=== PATIENT | female | born 1975 | race Caucasian/White ===

== ENCOUNTER 2016-07-30 05:46 | Day surgery (SDC) | payer MEDICAID ==
[2016-07-30] MEDS ORDERED: Sodium Chloride 0.9% 1,000 ML IV ONE ×2 (06:21→06:23)
--- NOTE | 2016-07-30 06:25 | C.PDOC ---
History Of Present Illness Patient is a 40 year old female who presents to the ER with a complaint of lower abdominal pain and vaginal bleeding since 23:00. Patient reports her LMP was a month ago, is unsure if she could be . Denies any dysuria, fever, or nausea. Chief Complaint (Nursing): Female Genitourinary History Per: Patient History/Exam Limitations: no limitations Onset/Duration Of Symptoms: Hrs (Since 23:00) Current Symptoms Are (Timing): Still Present Associated Symptoms: Other (Vaginal bleeding). denies: Fever, Nausea, Urinary Symptoms Past Medical History Reviewed: Historical Data, Nursing Documentation, Vital Signs Vital Signs: Last Vital Signs Temp 98.2 F 07/30/16 05:55 Pulse 83 07/30/16 05:55 Resp 20 07/30/16 05:55 BP 102/61 07/30/16 05:55 Pulse Ox 99 07/30/16 06:29 - Medical History PMH: Anemia Surgical History: No Surg Hx Family History: States: Unknown Family Hx - Social History Hx Alcohol Use: No Hx Substance Use: No - Immunization History Hx Tetanus Toxoid Vaccination: No Hx Influenza Vaccination: No Hx Pneumococcal Vaccination: No Review Of Systems Constitutional: Negative for: Fever, Chills Gastrointestinal: Positive for: Abdominal Pain (Lower). Negative for: Nausea Genitourinary: Negative for: Dysuria Physical Exam - Physical Exam Appears: Well, Non-toxic, No Acute Distress Skin: Normal Color, Warm, Dry Head: Atraumatic, Normacephalic Oral Mucosa: Moist Chest: Symmetrical Cardiovascular: Rhythm Regular, No Murmur Respiratory: Normal Breath Sounds, No Rales, No Rhonchi, No Wheezing Gastrointestinal/Abdominal: Soft, Tenderness (Mild hypogastric, more at LLQ) Pelvic: Vaginal Bleeding, Other (Blood clot in the vaginal vault. Cervix closed. ) Neurological/Psych: Oriented x3, Normal Speech, Other (No focal deficits.) ED Course And Treatment O2 Sat by Pulse Oximetry: 99 (Room air) Pulse Ox Interpretation: Normal Progress Note: Blood work and pelvic US ordered. IV fluids administered. Disposition - Disposition Disposition Time: 07:00 Condition: STABLE - Clinical Impression Clinical Impression: Abdominal pain, Episode of heavy vaginal bleeding - Scribe Statement The provider has reviewed the documentation as recorded by the Scribe Inocencio Dobbs All medical record entries made by the Scribe were at my direction and personally dictated by me. I have reviewed the chart and agree that the record accurately reflects my personal performance of the history, physical exam, medical decision making, and the department course for this patient. I have also personally directed, reviewed, and agree with the discharge instructions and disposition.
[2016-07-30 06:40] LABS: BASO % 0.6 % (0.0-2.0); EOS # 0.1 K/uL (0.0-0.7); HEMATOCRIT 33.7 % (34.0-47.0); LYMPH # 1.7 K/uL (1.0-4.3); LYMPH % 22.3 % (20.0-40.0); MEAN CELL VOLUME 85.3 fL (81.0-99.0); MEAN CORPUSCULAR HEMOGLOBIN 28.1 pg (27.0-31.0); MEAN PLATELET VOLUME 9.6 fL (7.2-11.7); MONO # 0.5 K/uL (0.0-0.8); MONO % 6.6 % (0.0-10.0); WHITE BLOOD COUNT 7.6 K/uL (4.8-10.8)
[2016-07-30 06:47] LABS: INR 1.1
[2016-07-30 06:59] LABS: CHLORIDE 103 mmol/L (98-107); SODIUM 137 mmol/L (132-148)
[2016-07-30 07:00] LABS: POTASSIUM 3.8 mmol/L (3.6-5.2)
[2016-07-30 07:02] LABS: ALB/GLOB RATIO 1.4 (1.0-2.1); ALKALINE PHOSPHATASE 53 U/L (38-126); AST/SGOT 26 U/L (14-36); BILIRUBIN,TOTAL 0.6 mg/dL (0.2-1.3); BLOOD UREA NITROGEN 11 mg/dL (7-17); CARBON DIOXIDE 19 mmol/L (22-30); GFR AFRICAN-AMERICAN > 60; GLUCOSE,RANDOM 85 mg/dL (65-105); TOTAL PROTEIN 6.9 g/dL (6.3-8.3)
[2016-07-30 07:03] LABS: ALT/SGPT 19 U/L (9-52); CALCIUM 8.4 mg/dl (8.6-10.4)
--- NOTE | 2016-07-30 09:28 | US ---
HISTORY: LLQ pain/ heavy vaginal bleed COMPARISON: None available. TECHNIQUE: Transabdominal and transvaginal FINDINGS: UTERUS: Measures 13.6 x 4.1 x 6.4 cm. Mid right uterine body fibroid, 3.2 x 2.7 x 2.9 cm. ENDOMETRIUM: Measures 20 mm in diameter. No intrauterine gestational sac identified. There are heterogeneous echoes within the endometrial cavity demonstrating blood flow on Doppler interrogation, suggesting retained products of conception. CERVIX: No cervical abnormality identified. RIGHT OVARY: Measures 3.5 x 1.6 x 2.3 cm. No solid mass. Normal flow. Corpus luteum, 1.4 x 1.1 x 1.1 cm. LEFT OVARY: Measures 3.4 x 1.5 x 2.8 cm. No solid mass. Normal flow. FREE FLUID: No significant free fluid noted. OTHER FINDINGS: None. IMPRESSION: No intrauterine gestation identified. Heterogeneous echoes within the endometrial cavity consistent with current vaginal bleeding. However, there is blood flow demonstrated within these endometrial echoes suggesting retained products of conception. Cannot rule out ectopic in the absence of demonstrated intrauterine gestation. Followup with serial beta HCG and transvaginal pelvic ultrasound is advised.
--- NOTE | 2016-07-30 12:11 | CP.PCM.CON ---
History of Present Illness - History of Present Illness History of Present Illness: OBGYN consult Reason -vaginal bleeding, HPI 40 y/o with LMP 06/18/2016 , presents to er with c/o heavy bleeding which started last night and she passed few clots.Patient denies feeling light headed or dizzy.Has cramps last night but none now Review of Systems - Review of Systems All systems: reviewed and no additional remarkable complaints except - Cardiovascular Cardiovascular: absent: Chest Pain, Dyspnea, Dyspnea on Exertion - Respiratory Respiratory: absent: Cough, Dyspnea on Exertion - Gastrointestinal Gastrointestinal: Abdominal Pain. absent: Nausea, Vomiting - Genitourinary Genitourinary: absent: Dysuria - Reproductive: Female Reproductive:Female: Abnormal Vaginal Bleeding Past Patient History - Past Social History Smoking Status: Never Smoked - CARDIAC Hx Cardiac Disorders: No - PULMONARY Hx Respiratory Disorders: No - HEMATOLOGICAL/ONCOLOGICAL Hx Anemia: Yes - GENITOURINARY/GYNECOLOGICAL Hx Sexually Transmitted Disorders: No LMP:: 06/18/2016 : 5 Para: 2 - PSYCHIATRIC Hx Substance Use: No - SURGICAL HISTORY Hx Surgeries: No Hx Dilation and Curettage: Yes - ANESTHESIA Hx Anesthesia: No Meds Allergies/Adverse Reactions: Allergies Allergy/AdvReac Type Severity Reaction Status Date / Time No Known Allergies Allergy Unverified 07/30/16 06:01 - Medications Medications: Current Medications Sodium Chloride (Sodium Chloride 0.9%) 1,000 mls @ 100 mls/hr IV .Q10H ONE Stop: 07/30/16 16:20 Last Admin: 07/30/16 06:34 Dose: 100 mls/hr Sodium Chloride (Sodium Chloride 0.9%) 1,000 mls @ 100 mls/hr IV .Q10H ONE Stop: 07/30/16 16:22 Last Admin: 07/30/16 06:45 Dose: Not Given Physical Exam - Constitutional Appears: No Acute Distress - Respiratory Exam Respiratory Exam: Clear to Auscultation Bilateral, NORMAL BREATHING PATTERN - Cardiovascular Exam Cardiovascular Exam: REGULAR RHYTHM - GI/Abdominal Exam GI & Abdominal Exam: Soft. absent: Rebound - Exam External exam: NORMAL EXTERNAL EXAM Speculum exam: Vaginal Bleeding Additional comments: speculum exam done Small amount of blood with blood clot removed cervix 1 cm dilated - Extremities Exam Extremities exam: Negative for: calf tenderness - Back Exam Back exam: absent: CVA tenderness (L), CVA tenderness (R) - Neurological Exam Neurological exam: Alert, Oriented x3 - Psychiatric Exam Psychiatric exam: Normal Affect, Normal Mood - Skin Skin Exam: Normal Color Results - Vital Signs Recent Vital Signs: Last Vital Signs Temp 98.2 F 07/30/16 05:55 Pulse 83 07/30/16 05:55 Resp 20 07/30/16 05:55 BP 102/61 07/30/16 05:55 Pulse Ox 99 07/30/16 06:30 - Labs Result Diagrams: 07/30/16 06:35 07/30/16 06:35 Labs: Laboratory Results - last 24 hr 07/30/16 07/30/16 07/30/16 06:35 06:35 06:35 WBC 7.6 RBC 3.95 Hgb 11.1 Hct 33.7 L MCV 85.3 MCH 28.1 MCHC 33.0 RDW 14.0 Plt Count 193 MPV 9.6 Neut % (Auto) 68.5 Lymph % (Auto) 22.3 [place] % (Auto) 6.6 Eos % (Auto) 2.0 Baso % (Auto) 0.6 Neut # 5.2 Lymph # 1.7 [place] # 0.5 Eos # 0.1 Baso # 0.0 PT 12.1 INR 1.1 APTT 32 Sodium 137 Potassium 3.8 Chloride 103 Carbon Dioxide 19 L Anion Gap 19 BUN 11 Creatinine 0.5 L Est GFR ( Amer) > 60 Est GFR (Non-Af Amer) > 60 Random Glucose 85 Calcium 8.4 L Total Bilirubin 0.6 AST 26 ALT 19 Alkaline Phosphatase 53 Total Protein 6.9 Albumin 4.0 Globulin 2.9 Albumin/Globulin Ratio 1.4 Beta HCG, Quant 3714.20 Urine HCG, Qual Blood Type Antibody Screen 07/30/16 07/30/16 06:35 07:28 WBC RBC Hgb Hct MCV MCH MCHC RDW Plt Count MPV Neut % (Auto) Lymph % (Auto) [place] % (Auto) Eos % (Auto) Baso % (Auto) Neut # Lymph # [place] # Eos # Baso # PT INR APTT Sodium Potassium Chloride Carbon Dioxide Anion Gap BUN Creatinine Est GFR ( Amer) Est GFR (Non-Af Amer) Random Glucose Calcium Total Bilirubin AST ALT Alkaline Phosphatase Total Protein Albumin Globulin Albumin/Globulin Ratio Beta HCG, Quant Urine HCG, Qual Positive Blood Type O POSITIVE Antibody Screen Negative - Imaging and Cardiology pelvic ultrasound Status: Report reviewed by me Additional comment: Ultrasound with thickened endometrium with echoes with blood flow suggestive of retained products however ectopic cannot be ruled out Assessment & Plan - Assessment and Plan (Free Text) Assessment: 40 y/o with vaginal bleeding , positive test and ultrasound suggestive of retained products Patient with active vaginal bleeding on exam discussed d&e in light of active bleeding and retained products patient contemplating doing the procedure.will inform the r physician if she desires to proceed discussed with patient risks of continued bleeding as well as risks associated with surgery.Patient states that she understands the risks and will inform the er physician once she has made her decision
[2016-07-30] MEDS ORDERED: Sodium Chloride 0.9% 1,000 ML ONE (12:13)
[2016-07-30] MEDS ORDERED: Lactated Ringer's 1,000 ML IV ONE (16:20)
[2016-07-30] MEDS ORDERED: cefOXitin IV 1 gm in Dextrose 1 GM/50 ML BAG IVPB ONE (16:22)
[2016-07-30] MEDS ORDERED: Propofol 10 mg/ml Inj (20 ML) ONE (16:22)
[2016-07-30] MEDS ORDERED: Midazolam 2 MG/2 ML VIAL ONE (16:22)
--- NOTE | 2016-07-30 16:45 | PCM.SURG1 ---
Surgeon's Initial Post Op Note - Surgeon's Notes Surgeon: Dr Perez Photographer'S Assistant: None Type of Anesthesia: General Endo Anesthesia Administered By: Dr Kirill Cotto Pre-Operative Diagnosis: Incomplete Miscarriage with Retained products of conception Operative Findings: 8wk sized anteverted uterus with copious amounts of POC suctioned and curreted. Uterus sounded to 7-8cm. IVFluid - 400mls. Urine Output - 50mls. EBL- 50mls Post-Operative Diagnosis: Same as preop diagnosis Operation Performed: Suction D and C Specimen/Specimens Removed: Products of conception Estimated Blood Loss: EBL {In ML}: 50 Blood Products Given: N/A Post-Op Condition: Good Date of Surgery/Procedure: 07/30/16 Time of Surgery/Procedure: 16:46
[2016-07-30] MEDS ORDERED: HYDROmorphone 0.5 mg/0.5 ml ISec IVP PRN (16:46)
[2016-07-30] MEDS ORDERED: Lactated Ringer's 1,000 ML IV SCH (17:00)
[2016-07-30 17:15] VITALS: O2SAT 100
[2016-07-30 18:10] VITALS: RESP 18
[2016-07-30 19:02] VITALS: BP 113/64; PULSE 62; TEMP 98.2
--- NOTE | 2016-07-30 19:40 | OP ---
PROCEDURE DATE: 07/30/2016 PREOPERATIVE DIAGNOSIS: A 40-year-old female with incomplete miscarriage with retained products. POSTOPERATIVE DIAGNOSIS: A 40-year-old female with incomplete miscarriage with retained products. PROCEDURE: Suction D and C under anesthesia, performed on 07/30/2016. SURGEON: Dr. Perez. TELECOMMUNICATIONS SPECIALIST: None. TYPE OF ANESTHESIA: General endotracheal. ANESTHESIA ADMINISTERED BY: Dr. Kirill Cotto. OPERATIVE FINDINGS: An 8-week size anteverted uterus with cervix open with copious amounts of produc ts of conception. The uterus was sounded to a depth of about 8 cm. INTRAVENOUS FLUID INTAKE: 400 mL. URINE OUTPUT: 50 mL. ESTIMATED BLOOD LOSS: About 50 mL. COMPLICATIONS: None. SPECIMEN: Products of conception was sent for histopathological evaluation. DESCRIPTION OF PROCEDURE: After obtaining informed consent, the patient was sent to the OR with IV r unning. The patient was placed in the supine position on the OR table and after adequate general ane sthesia, was placed in the dorsal lithotomy position. The patient was then prepped and draped in the usual sterile fashion. The urinary bladder was drained using a straight catheter with output of abo ut 50 mL of clear urine. The posterior wall of the vagina was depressed with a weighted speculum, an terior wall elevated with an L-shaped retractor to expose the cervix, which was held between 2 Nitza clamps. There were some intravaginal blood clots which were removed during this period. The uterus was sounded to about 8 cm and the cervix, which was about 1 cm dilated, using a suction curette chrissy beard of 8 mm size, the cannula was introduced into the intrauterine cavity and suction applied. Copiou s amounts of products of conception were removed and this fashion. To ensure adequate removal of tis sues, sharp curettage using a curette was performed. This was done until the uterine cavity was empt y. Once the procedure was completed, all instruments were removed from the cervix and the vagina. T he patient was placed back in a supine position. The patient was sent to the recovery room awake and in stable condition. All counts of instruments, laparotomy pads, and needles used were correct x 3. Chau Perez MD cc: [id number] TT: 07/30/2016 19:39:27 rn
== END 2016-07-30 19:00 | disposition home or self-care (01) ==
LOC: C.ER 05:46 → C.SDS 05:46
PROVIDERS: ATTEND Obstetrics & Gynecology
DX: O03.4 Incomplete spontaneous abortion without complication (principal)
CPT/HCPCS: 59812; 76830; 76856; 80053; 84702; 84703; 85025; 85610; 85730; 86850; 86900; 88305; 99285; J1885; J2210; J2250; J2704; J3010; J7040; J7120